=== PATIENT | male | born 1995 | race African-American/Black ===

== ENCOUNTER 2017-02-26 08:42 | Emergency (ER) | payer BC ==
[~2017-02-26] VITALS: Ht 175.3 cm; Wt 77.0 kg
[2017-02-26 10:12] VITALS: BP 144/83
[2017-02-26] MEDS ORDERED: LIDOCAINE HCL/EPINEPHRINE 1%-EPI 1:100,000 30 ML VIAL INFIL ONE (10:15)
[2017-02-26] MEDS ORDERED: BACITRACIN ZINC OINT UDPKT TOP ONE (10:15)
[2017-02-26] MEDS ORDERED: LIDOCAINE HCL 1%/EPI 1:200,000 30 ML VIAL MC ONE (10:45)
== END 2017-02-26 11:09 | disposition home or self-care (01) ==
LOC: ER 10:13
DX: K61.0 Anal abscess (principal)
CPT/HCPCS: 46050; 99284; Z7610